=== PATIENT | male | born 1960 | race Caucasian/White ===

== ENCOUNTER 2017-08-08 08:14 | Outpatient (CLI) | payer OTHER ==
[~2017-08-08 08:14] MED LIST: ULTRACET PO
== END 2017-08-08 09:23 | disposition home or self-care (01) ==
LOC: SONOGRAMA 08:14
DX: M25.511 Pain in right shoulder (principal); M25.512 Pain in left shoulder

== ENCOUNTER → 2018-06-13 | Emergency (ER) | payer OTHER ==
[~2018-06-13] VITALS: Ht 165.1 cm; Wt 79.4 kg
[~2018-06-13] MED LIST changes: +DEPAKOTE ER500 MG; +GABAPENTIN600 MG; +KETO10TA2 PO
== END | disposition left against medical advice (07) ==
LOC: ER 12:27
DX: M25.571 Pain in right ankle and joints of right foot (principal)

== ENCOUNTER 2018-06-14 09:50 | Emergency (ER) | payer OTHER ==
[~2018-06-14] VITALS: Ht 165.1 cm; Wt 79.4 kg
[~2018-06-14 09:50] MED LIST changes: -GABAPENTIN600 MG
[2018-06-14] MEDS ORDERED: GABAPENTIN600 MG (10:06)
== END 2018-06-14 12:16 | disposition home or self-care (01) ==
LOC: ER 09:50
DX: J45.998 Other asthma (principal); J06.9 Acute upper respiratory infection, unspecified

== ENCOUNTER 2018-08-08 13:57 | Outpatient (CLI) | payer OTHER ==
[~2018-08-08 13:57] MED LIST changes: +GABAPENTIN600 MG
== END 2018-08-08 14:01 | disposition home or self-care (01) ==
LOC: SONOGRAMA 13:57
DX: M25.671 Stiffness of right ankle, not elsewhere classified (principal)

== ENCOUNTER → 2018-12-16 | Emergency (ER) | payer OTHER ==
[~2018-12-16] VITALS: Ht 165.1 cm; Wt 83.9 kg
[~2018-12-16] MED LIST changes: +ALLEGRA-D 12 H1 EACH PO; +LEVOTHYROXINE25 MCG; +NASONEX17 GM NASAL; +VALTREX1000 MG PO
== END | disposition home or self-care (01) ==
LOC: ER 20:39
DX: J32.8 Other chronic sinusitis (principal)

== ENCOUNTER → 2018-12-21 | Emergency (ER) | payer OTHER ==
[~2018-12-21] VITALS: Ht 165.1 cm; Wt 83.9 kg
== END | disposition left against medical advice (07) ==
LOC: ER 06:37
DX: B02.30 Zoster ocular disease, unspecified (principal)

== ENCOUNTER 2019-01-01 09:53 | Outpatient (CLI) | payer OTHER | END 2019-01-01 10:00 | disposition home or self-care (01) | LOC: MRI 09:53 | DX: G40.909 Epilepsy, unspecified, not intractable, without status epilepticus (principal) | CPT/HCPCS: 70553 ==

== ENCOUNTER 2019-01-06 08:49 | Emergency (ER) | payer OTHER ==
[~2019-01-06] VITALS: Ht 165.1 cm; Wt 82.1 kg
== END 2019-01-06 13:16 | disposition home or self-care (01) ==
LOC: ER 08:49
DX: G58.8 Other specified mononeuropathies (principal)

== ENCOUNTER 2021-03-23 07:24 | Emergency (ER) | payer OTHER ==
[~2021-03-23] VITALS: Ht 165.1 cm; Wt 83.9 kg
== END 2021-03-23 10:23 | disposition home or self-care (01) ==
LOC: ER 07:24
DX: M12.562 Traumatic arthropathy, left knee (principal)

== ENCOUNTER 2021-03-30 11:26 | Outpatient (CLI) | payer OTHER | END 2021-03-30 11:40 | disposition home or self-care (01) | LOC: TOM 11:26 | PROVIDERS: ATTEND Orthopaedic Surgery | DX: S82.122A Displaced fracture of lateral condyle of left tibia, initial encounter for closed fracture (principal) ==

== ENCOUNTER 2021-04-20 11:38 | Outpatient (CLI) | payer OTHER | END 2021-04-20 11:53 | disposition home or self-care (01) | LOC: RAD 11:38 | PROVIDERS: ATTEND Orthopaedic Surgery | DX: S82.122D Displaced fracture of lateral condyle of left tibia, subsequent encounter for closed fracture with routine healing (principal) ==

== ENCOUNTER → 2021-05-26 | Outpatient (CLI) | payer OTHER | END | disposition home or self-care (01) | LOC: RAD 11:23 | PROVIDERS: ATTEND Orthopaedic Surgery Sports Medicine | DX: M25.562 Pain in left knee (principal); S49.90XA Unspecified injury of shoulder and upper arm, unspecified arm, initial encounter ==

== ENCOUNTER 2021-06-16 08:48 | Outpatient (CLI) | payer OTHER | END 2021-06-16 08:49 | disposition home or self-care (01) | LOC: NUCLEAR 08:48 | PROVIDERS: ATTEND Orthopaedic Surgery Sports Medicine | DX: I87.2 Venous insufficiency (chronic) (peripheral) (principal) ==

== ENCOUNTER 2021-07-05 07:05 | Outpatient (CLI) | payer OTHER | END 2021-07-05 07:17 | disposition home or self-care (01) | LOC: RAD 07:05 | PROVIDERS: ATTEND Physical Medicine & Rehabilitation | DX: S82.112 Displaced fracture of left tibial spine (principal) ==

== ENCOUNTER 2021-08-17 12:24 | Outpatient (CLI) | payer OTHER | END 2021-08-17 12:37 | disposition home or self-care (01) | LOC: RAD 12:24 | PROVIDERS: ATTEND Physical Medicine & Rehabilitation | DX: S82.002D Unspecified fracture of left patella, subsequent encounter for closed fracture with routine healing (principal) ==

== ENCOUNTER 2022-03-01 07:56 | Outpatient (CLI) | payer OTHER | END 2022-03-01 07:58 | disposition home or self-care (01) | LOC: RAD 07:56 | PROVIDERS: ATTEND Physical Medicine & Rehabilitation | DX: M25.512 Pain in left shoulder (principal); M25.511 Pain in right shoulder; M17.11 Unilateral primary osteoarthritis, right knee; M17.12 Unilateral primary osteoarthritis, left knee; M25.579 Pain in unspecified ankle and joints of unspecified foot ==

== ENCOUNTER 2022-08-08 07:12 | Outpatient (CLI) | payer OTHER | END 2022-08-08 07:30 | disposition home or self-care (01) | LOC: RAD 07:12 | DX: M25.819 Other specified joint disorders, unspecified shoulder (principal); M25.9 Joint disorder, unspecified ==

== ENCOUNTER 2022-12-13 07:24 | Outpatient (CLI) | payer OTHER | END 2022-12-13 07:32 | disposition home or self-care (01) | LOC: RAD 07:24 | DX: J18.9 Pneumonia, unspecified organism (principal) ==

== ENCOUNTER 2023-02-27 08:01 | Outpatient (CLI) | payer OTHER | END 2023-02-27 08:09 | disposition home or self-care (01) | LOC: RAD 08:01 | PROVIDERS: ATTEND General Practice | DX: M25.812 Other specified joint disorders, left shoulder (principal); M25.9 Joint disorder, unspecified ==

== ENCOUNTER 2023-04-21 08:12 | Outpatient (CLI) | payer OTHER | END 2023-04-21 08:19 | disposition home or self-care (01) | LOC: RAD 08:12 | PROVIDERS: ATTEND Physical Medicine & Rehabilitation | DX: M25.551 Pain in right hip (principal); M25.552 Pain in left hip ==

== ENCOUNTER 2023-10-23 08:46 | Outpatient (CLI) | payer OTHER | END 2023-10-23 08:54 | disposition home or self-care (01) | LOC: RAD 08:46 | PROVIDERS: ATTEND Physical Medicine & Rehabilitation | DX: S82.142A Displaced bicondylar fracture of left tibia, initial encounter for closed fracture (principal); M25.562 Pain in left knee ==

== ENCOUNTER 2024-04-25 09:21 | Outpatient (CLI) | payer OTHER | END 2024-04-25 09:22 | disposition home or self-care (01) | LOC: NUCLEAR 09:21 | PROVIDERS: ATTEND Physical Medicine & Rehabilitation | DX: M81.0 Age-related osteoporosis without current pathological fracture (principal) ==

== ENCOUNTER 2024-10-22 10:19 | Outpatient (CLI) | payer OTHER | END 2024-10-22 10:25 | disposition home or self-care (01) | LOC: RAD 10:19 | PROVIDERS: ATTEND Physical Medicine & Rehabilitation | DX: M25.511 Pain in right shoulder (principal); M25.512 Pain in left shoulder; M25.571 Pain in right ankle and joints of right foot; M25.551 Pain in right hip; M25.552 Pain in left hip; M25.562 Pain in left knee; M54.50 Low back pain, unspecified ==

== ENCOUNTER 2024-10-25 07:25 | Outpatient (CLI) | payer OTHER | END 2024-10-25 07:26 | disposition home or self-care (01) | LOC: RAD 07:25 | PROVIDERS: ATTEND Physical Medicine & Rehabilitation | DX: W19.XXXA Unspecified fall, initial encounter (principal) ==

== ENCOUNTER 2025-02-03 11:38 | Outpatient (CLI) | payer OTHER | END 2025-02-03 11:46 | disposition home or self-care (01) | LOC: RAD 11:38 | PROVIDERS: ATTEND Physical Medicine & Rehabilitation | DX: M17.11 Unilateral primary osteoarthritis, right knee (principal) ==